=== PATIENT | female | born 1945 | race Caucasian/White ===

== ENCOUNTER 2016-09-19 13:32 | Inpatient (IN) | payer MEDICARE, MEDICAID ==
--- NOTE | 2016-09-19 13:43 | ED Physician Chart ---
Chief Complaint/HPI - Patient Information Date Seen:: 09/19/16 Time Seen:: 13:39 Chief Complaint:: falling History of Present Illness:: pt sent from [place] for eval after frequent falls...fell yest and today...fell in room 1x and outside 1x. pt denies LOC but cant say why she is falling. no NUÑEZ, no CP, no abd p, no palpitations. no focal neuro weakness/numbness. pt says this is a recent acute change. no hx fever/no illness. no cough , no urine change noted. no n/v/d fever noted by ed staff on arrival Historian:: Patient Past Medical History - Past Medical History Past Medical History: Seizures, Dementia, Other (brain ca hx/ distant brain sx) Social History: Care Facility Psychiatricy History: Dementia Medication: Reviewed Family Medical History - Family Member Mother History Unknown: Yes Physical Exam - Physical Examination General/Constitutional: Awake, Well-developed, well-nourished, Alert, No distress, GCS 15, Non-toxic appearing, Ambulatory Other Gen/Cons comments:: mod obese. alert and cogent..ok historian. moves all extr w nrml strength and coordination. sensation ok. Head: Atraumatic Eyes: Lids, conjuctiva normal, PERRL, EOMI Skin: Nl inspection, No rash, No skin lesions, No ecchymosis, Well hydrated, No lymphadenopathy ENMT: External ears, nose nl, Nasal exam nl, Lips, teeth, gums nl Neck: Nontender, Full ROM w/o pain, No JVD, No nuchal rigidity, No bruit, No mass, No stridor Respiratory: Nl effort/Exclusion, Clear to Auscultation, No Wheeze/Rhonchi/Rales Cardio Vascular: RRR, No murmur, gallop, rubs, NL S1 S2 GI: No tenderness/rebounding/guarding, No organomegaly, No hernia, Normal BS's, Nondistended, No mass/bruits, No McBurney tenderness : No CVA tenderness Extremities: No tenderness or effusion, Full ROM, normal strength in all extremities, No edema, Normal digits & nails Neuro/Psych: Alert/oriented, DTR's symmetric, Normal sensory exam, Normal motor strength, Judgement/insight normal, Mood normal, Normal gait, No focal deficits Misc: normal gait, Normal back, No paraspinal tenderness Labs/Radiology/EKG Results - Lab Results Results: Laboratory Tests 09/19/16 09/19/16 09/19/16 13:50 13:50 13:50 WBC 18.6 H RBC 4.12 Hgb 13.6 Hct 40.7 MCV 98.8 MCH 33.0 H MCHC Differential 33.4 RDW 12.5 Plt Count 190 MPV 7.1 Neutrophils (Manual) 95 H Lymphocytes 2 L Monocytes 3 Eosinophils 0 Platelet Estimate ADEQUATE Platelet Morphology NORMAL RBC Morph Micro Appear NORMAL Sodium 133 L Potassium 3.5 Chloride 100 Carbon Dioxide 29.4 Anion Gap 7.1 BUN 13 Creatinine 0.9 Est GFR ( Amer) TNP Est GFR (Non-Af Amer) TNP BUN/Creatinine Ratio 14.4 Glucose 194 H Hemoglobin A1c % Calcium 9.2 Total Bilirubin 0.6 AST 14 ALT 10 Alkaline Phosphatase 84 Troponin I 0.01 Total Protein 7.8 Albumin 4.1 Globulin 3.7 Albumin/Globulin Ratio 1.1 Phenytoin 24.8 H 09/19/16 13:50 WBC RBC Hgb Hct MCV MCH MCHC Differential RDW Plt Count MPV Neutrophils (Manual) Lymphocytes Monocytes Eosinophils Platelet Estimate Platelet Morphology RBC Morph Micro Appear Sodium Potassium Chloride Carbon Dioxide Anion Gap BUN Creatinine Est GFR ( Amer) Est GFR (Non-Af Amer) BUN/Creatinine Ratio Glucose Hemoglobin A1c % 5.2 Calcium Total Bilirubin AST ALT Alkaline Phosphatase Troponin I Total Protein Albumin Globulin Albumin/Globulin Ratio Phenytoin - Radiology Results Results: cxr nad/ perhaps slight edema and highlighting of lateral fissure. ct head- no bleed/ prior rt frontal craniotomy sx, chronic atrophy and asvd - EKG Interpretations EKG Time:: 13:45 Rhythm: nsr Herman: 79 Rate: 80 Comments:: nsr 95, wnl no st/t changes ED Septic Shock - . Is Septic Shock (SBP<90, OR Lactate>4 mmol\L) present?: No Reassessment (Disposition) - Reassessment Reassessment:: d/w Dr Guevara...will admit. for fever r/o sepsis, frequent falls recently Reassessment Condition:: Improved - Diagnosis Diagnosis:: 1 leukocytosis w elevated neutrophils and fever r/o sepsis, 2 frequent falls recently - Patient Disposition Admitted to:: Telemetry Condition at Disposition:: Improved
[2016-09-19 14:05] LABS: HEMATOCRIT 40.7 % (35.0-45.0); HEMOGLOBIN 13.6 gm/dL (11.7-16.1); MEAN CELL VOLUME 98.8 fl (81-100); MEAN CORPUSCULAR HGB CONC 33.4 pg (28.0-36.0); MEAN PLATELET VOLUME 7.1 fl; PLATELET COUNT 190 Th/cmm (150-400); RED BLOOD COUNT 4.12 Mil/cmm (3.80-5.20); RED CELL DISTRIBUTION WIDTH 12.5 % (11.5-20.0); WHITE BLOOD COUNT 18.6 Th/cmm (4.8-10.8)
[2016-09-19 14:20] LABS: ALB/GLOB RATIO 1.1 (1.0-1.8); ALKALINE PHOSPHATASE 84 U/L (34-104); ANION GAP 7.1 (7.0-16.0); BILIRUBIN,TOTAL 0.6 mg/dL (0.3-1.0); BUN - UREA NITROGEN 13 mg/dL (7-25); BUN/CREATININE RATIO 14.4; CALCIUM SERUM 9.2 mg/dL (8.6-10.3); CARBON DIOXIDE 29.4 mEq/L (21.0-31.0); CHLORIDE 100 mEq/L (98-107); CREATININE - SERUM 0.9 mg/dL (0.6-1.2); GLUCOSE 194 mg/dL (70-105); PHENYTOIN 24.8 ug/ml (10.0-20.0); POTASSIUM SERUM 3.5 mEq/L (3.5-5.1); SGOT 14 U/L (13-39); SGPT/ALT 10 U/L (7-52); SODIUM SERUM 133 mEq/L (136-145)
[2016-09-19 14:23] LABS: EOSINOPHIL 0 % (0-5); NEUTROPHILS 95 % (40-80); PLATELET ESTIMATE ADEQUATE (NORMAL); PLATELET MORPHOLOGY NORMAL (NORMAL); TOTAL CELLS COUNTED 100
--- NOTE | 2016-09-19 14:48 | Diagnostic Imaging Report ---
Head CT without intravenous contrast Indication: Frequent falls history of brain tumor Comparison: None Technique: Axial images were obtained from the vertex to the skull base without IV contrast. Coronal reconstructions were made. Total DLP: 566, CTDI31.3 FINDINGS: Images of the brain obtained without contrast demonstrate evidence of prior right frontal craniotomies. There is no evidence of an acute hemorrhage. Area of encephalomalacia is seen along the right frontal lobe and right basal ganglia are noted. There is ex vacuo dilatation of the anterior horn of the right lateral ventricle. Atrophy and diffuse supratentorial white matter disease is noted. Atherosclerotic vascular disease is noted. The ventricles and basal cisterns are patent. No mass effect or midline shift. No evidence of a skull fracture or significant focal soft tissue swelling. IMPRESSION: Postsurgical changes including evidence of right frontal craniotomies with areas of encephalomalacia throughout the right frontal lobe and right basal ganglia. These may be due to old infarcts or possibly previous surgery and mass resection. Please correlate with clinical history and old exams. If clinically indicated, short-term follow up MRI may also be obtained for further assessment. No evidence of acute hemorrhage. Atrophy. Diffuse supratentorial white matter disease which is nonspecific and may be due to chronic microvessel ischemia. Atherosclerotic vascular disease.
--- NOTE | 2016-09-19 15:13 | Diagnostic Imaging Report ---
CHEST X-RAY: AP view INDICATION: Fever COMPARISON: None FINDINGS: Chronic changes are seen with thickening of the minor fissure. Increased adjacent markings are seen along the right upper lobe. No pleural effusions. Heart size normal. Atherosclerosis is noted. Degenerative changes of the spine are noted. IMPRESSION: Chronic lung changes. Note that same infiltrate of the inferior aspect of the right upper lobe adjacent to the minor fissure cannot be excluded. Atherosclerotic vascular disease.
[2016-09-19] MEDS: Albuterol/Ipratropium Neb 3 ML AERS HHN SCH (18:55)
[2016-09-19] MEDS: Levofloxacin 500mg/100mL 500 MG/100 ML BAG IV SCH (19:55)
[2016-09-19] MEDS ORDERED: Pneumococcal Vaccine 0.5 mL Vial IM ONE (21:00)
[2016-09-20 05:50] LABS: CHOLESTEROL 174 mg/dL (<200); TRIGLYCERIDES 61 mg/dL (<150)
[2016-09-20] MEDS: Albuterol/Ipratropium Neb 3 ML AERS HHN SCH ×4 (06:40→19:03)
--- NOTE | 2016-09-20 12:59 | History & Physical ---
CHIEF COMPLAINT: Status post multiple falls, lethargy. HISTORY OF PRESENT ILLNESS: This is a 70-year-old lady who resides at [facility] who has a history of COPD, nicotine dependence, history of brain cancer, status post resection, and history of seizures on Dilantin and Keppra, who apparently has had roughly about 7 non-mechanical falls over the last couple of days. She states that she fell down in her bedroom, but did not lose consciousness, but was not able to get up on her own. She also apparently has had some falls in the outside of facility, but again they are not described as syncopal episodes as she has not lost consciousness. She does admit to feeling more weak and lethargic over the last week or so. She has a chronic cough, but denies any worsening of her cough. She also denies any fever, chills or shortness of breath. PAST MEDICAL HISTORY: As noted above. PAST SURGICAL HISTORY: As noted above. FAMILY HISTORY: Likely noncontributory to this admission. SOCIAL HISTORY: Nicotine, she is a long time smoker about a pack a day since an early age. No ETOH. No illicit drug usage. She lives at [facility] under the care of Dr. Garcia. ALLERGIES: NKDA. OUTPATIENT MEDICATIONS: Loratadine 10 mg every day, Keppra 500 mg b.i.d., Dilantin 100 mg 3 times a day, mirtazapine 30 mg at bedtime, diphenhydramine 25 at bedtime, clonazepam 2mg-2 tabs at bedtime, temazepam 15 mg at bedtime, meclizine 25 mg t.i.d. p.r.n. for dizziness and triamcinolone cream b.i.d. p.r.n. REVIEW OF SYSTEMS: GENERAL: Denies any fever, chills, and recent weight loss. CARDIOVASCULAR: No chest pain or palpitations. PULMONARY: Chronic cough with thick yellowish sputum, but the patient denies any worsening of her symptoms and mild to moderate chronic SOB, especially upon exertion. GASTROINTESTINAL: No bowel habit changes. GENITOURINARY: No bladder habit changes including no dysuria or hematuria. NEUROLOGIC: Please refer to the HPI, but again she denies any syncopal episodes. She denies any headaches or blurry vision. She does feel somewhat weak and somewhat lethargic as mentioned above. PHYSICAL EXAMINATION: VITAL SIGNS: Current temperature is 99.0, T-max was 101.2, pulse 83-92, respirations 18-20, BP 114/60, satting 93%-99% on room air. GENERAL: She is a well-developed, well-nourished elderly female, currently asleep, but arousable. She is somewhat lethargic. HEAD AND NECK: Normocephalic, atraumatic. Pupils are sluggish, but reactive to light. NECK: There is no JVD or LAD. CARDIAC: Regular rate and rhythm with distant sounds. LUNGS: Severely diminished on both ascites. There are some rhonchi noted on the right lower aspect of the lung. ABDOMEN: Soft, supple, nontender, nondistended, normoactive bowel sounds. EXTREMITIES: There is no edema in lower extremities. NEUROLOGIC: Good neuro exam was unable to be done given the patient was not able to stand at this time, but her cranial nerves 2-12 appear to be intact. LABORATORY DATA: White count 18.6 with a neutrophil count of 95, otherwise CBC within normal limits. Sodium 133, glucose 194, otherwise chemistries were okay and cholesterol 174. Triglycerides 61. TSH is 1.81. Dilantin levels 24.8. DIAGNOSTICS: CT shows postsurgical changes including no evidence of right frontal craniotomies with areas of encephalomalacia throughout the right frontal lobe and right basal ganglia. This may be due to old infarct or possible previous surgery and mass resection. Diffuse supratentorial white matter disease, which is nonspecific and may be due to chronic microvessel ischemia and there is also atherosclerotic vascular disease. Chest x-ray shows chronic lung changes that could be an infiltrate on the inferior aspect of the right upper lobe adjacent to the minor fissure, which cannot be excluded. There is also noted atherosclerotic vascular disease. IMPRESSION: 1. Status post multiple mechanical falls, etiology could be secondary to infection, sepsis, other things to consider will be oral medication given that she takes 2 anticonvulsants as well as Benadryl and Ativan. 2. Leukocytosis, likely secondary to infectious etiology, which at this time points to pneumonia. Other things to consider will be urinary infection. 3. Possible right upper lobe pneumonia. 4. History of chronic obstructive pulmonary disease. 5. Longstanding history of nicotine dependence. 6. History of atherosclerotic vascular disease. PLAN: The patient has been admitted to tele floor for further management and care. The patient has been placed on Levaquin IV q. 24 hours as well as pulmonary supportive care with DuoNeb q. 4 hours while awake and p.r.n. The patient also has been placed on oxygen and sputum C and S will be ordered. As far as falls, they appear to be nonsyncopa; I will ask for Neurology eval and will withhold Dilantin and monitor on a daily basis. The patient will be kept on her Keppra schedule and Benadryl will be discontinued and temazepam and Klonopin will be tapered. UA will be asked for. She will be kept on her other medications as scheduled. Follow up x-ray will be done as well. JOB# [id number] MITCH
[2016-09-20] MEDS ORDERED: VTE Chemical Prophylaxis Screen/Admission MC PRN (15:15)
--- NOTE | 2016-09-20 15:42 | Diagnostic Imaging Report ---
Bilateral carotid Doppler ultrasound exam HISTORY: Sonographic sector images were obtained to the carotid bifurcation regions bilaterally. Associated Doppler data was obtained. The exam of the right side demonstrates generalized intimal thickening throughout the bifurcation region. Mild focal plaque is seen in the common carotid artery and at the origin of the right internal and external carotid arteries. Elevated velocity seen in the external carotid artery region. The IC/CC flow ratios normal (1.76). Antegrade vertebral artery flow. The exam of the left side demonstrates generalized intimal thickening throughout the bifurcation region. Mild focal plaque noted in the distal common carotid artery and at the origin of the left internal carotid artery. Antegrade vertebral artery flow. Elevated velocities seen in the region of the left external carotid artery. Minimally elevated velocities noted in the mid and distal portions of the internal carotid artery. The ICC/CCA flow ratios are normal (0.92). IMPRESSION: 1. Mild bilateral athetotic changes that do not appear to be hemodynamically significant.
[2016-09-20] MEDS: Levofloxacin 500mg/100mL 500 MG/100 ML BAG IV SCH (17:00)
--- NOTE | 2016-09-20 18:02 | History & Physical ---
HISTORY OF PRESENT ILLNESS: The patient is a 70-year-old. The patient in the custodial home. The patient had multiple falls. These tend to be ____ mechanical. There are no seizures associated with this. She is just very unsteady and weak. She says she gets along with a walker, but even that is difficult. PAST MEDICAL HISTORY: The patient has a history of brain tumor surgery, seizures, somewhat forgetful. MEDICATIONS: Dilantin, Keppra, Benadryl. Dilantin level high when she came in. Also takes clonazepam and temazepam. Meclizine. SOCIAL HISTORY: Does not smoke or drink. REVIEW OF SYSTEMS: Twelve point negative except for above. PHYSICAL EXAMINATION: VITAL SIGNS: Temperature 98.4. The patient was febrile on admission, blood pressure 120/60, pulse is around 84. NECK: Supple, no bruits. HEART: Sounds S1, S2. LUNGS: Clear. ABDOMEN: Soft. NEUROLOGIC: The patient is awake, alert. She gives me her name. She will answer questions. Speech is slightly slow, but coherent. No marked facial weakness. CRANIAL: Pupils react to light. No nystagmus. MOTOR: She will lift both arms up some weakness on the left side. The patient's legs, she will lift them up, again some weakness on the left side. REFLEXES: Upper extremity -1 absent in the knees and ankles. Sensation reduced in the feet. INVESTIGATIONS: CT scan of the head shows the right previous craniotomy with encephalomalacia, no acute process. Involves the right frontal basal ganglia. LABORATORY DATA: Dilantin level high 24.8. Dilantin held. We will restart again. IMPRESSION: 1.Ataxia. 2.Falls. 3.The patient with previous brain surgery, craniotomy with significant encephalomalacia on the right side, basal ganglia on frontal. 4.Sepsis. 5.Leukocytosis. 6.Seizures. 7.Dilantin toxicity. 8.Multiple medications including sedative, meclizine, Benadryl, which I think should some of them be stopped. Management at this time, MRI cervical spine. The patient has significant neuropathy, which could be contributing to the ataxia. She has the right sided previous surgery, which could be contributed to that in addition to medications. She is going to need physical therapy assessment and management. The patient is at high risk of fall and injury. JOB# [id number]
--- NOTE | 2016-09-20 21:40 | Cardiology ---
The patient is a patient of Dr. Guevara. M-MODE ECHOCARDIOGRAM: Mitral valve, anterior leaflet of the mitral valve shows normal excursion, EF velocity. Posterior leaflet of mitral valve shows normal excursion. Left ventricular posterior wall shows increased thickness, normal excursion. Interventricular septum shows increased thickness, normal excursion, hypertrophy of the left ventricle, ejection fraction 55%. Left atrium normal. Aortic root shows normal dimension, normal excursion of aortic leaflets. CONCLUSION: Hypertrophy of the left ventricle, ejection fraction 55%. 2D ECHO: Long axis view showed normal sized left ventricle with hypertrophy of the left ventricle. Left atrium normal. Aortic root shows normal dimension, normal excursion of aortic leaflets. Short axis view of mitral valve normal. Short axis view aortic valve normal. Apical four chamber view showed normal sized left ventricle with hypertrophy of the left ventricle. Left atrium normal. Right ventricular cavity, right atrium normal. No pericardial effusion. CONCLUSION: Hypertrophy of the left ventricle, ejection fraction 55%. DOPPLER STUDY: Doppler study shows mild aortic regurgitation, moderate tricuspid regurgitation, right ventricular systolic pressure 52 mmHg with moderate pulmonary hypertension. CONCLUSION: Hypertrophy of the left ventricle, ejection fraction 55%. Moderate pulmonary hypertension, moderate tricuspid regurgitation and mild aortic regurgitation. JOB# [id number]
--- NOTE | 2016-09-21 00:34 | Admit Criteria Form ---
Admit Criteria Forms - Admit Criteria Diagnosis: SEPSIS and OTHER FEBRILE ILLNESS, W/O FOCAL INFECTION Clinical Indications for Admission to Inpatient Care ( Place 'X' for any and all applicable criteria): Admission is indicated for ANY ONE of the following (1)(2)(3)(4): [ ] I. Bacteremia [ ]II. Suspected or identified specific infection requiring hospitalization (eg, meningitis, endocarditis) [ ]III. Hemodynamic instability [ ]IV. Altered mental status [ ]V. Failure or unavailability of outpatient antimicrobial treatment [ ]. Hypoxemia [ ]VII. Seizures [ ]VIII. High-risk febrile neutropenia [ ]IX. Need for parenteral antibiotic in patient who is likely to abuse vascular access device (eg, injection drug user) [A](7) [ ]X. Temperature greater than 104.9 degrees F (40.5 degrees C) (oral) [X ]XI. Inpatient admission required rather than observation care because of ANY ONE of the following: [ ]1) Specific infection identified that is too severe for outpatient treatment or observation care trial [ ]2) Metabolic disorder (eg, hypoglycemia, hyperglycemia, metabolic acidosis) that is severe or persistent [ ]3) Temperature greater than 103.1 degrees F (39.5 degrees C) ( oral) that is not responsive to observation care treatment [ ]4) IV fluid to replace significant ongoing (eg, for over 24 hours) losses (> 3 L/m2 per day) [ ]5) Supplemental oxygen or respiratory treatments for over 24 hours that is performable only in acute inpatient setting [ ]6) Parenteral nutrition regimen need that must be implemented on inpatient basis [ ]7) Strict or protective (eg, laminar flow) isolation [ X]8) Other condition, treatment or monitoring requiring inpatient admission Extended stay beyond goal length of stay may be needed for(1)(3) [ ]a) Sepsis or septic shock(22) [ ]b) Positive blood cultures [ ]c) Insufficient oral intake [ ]d) High-risk febrile neutropenia(29)(30) [ ]e) Continued fever and clinical instability [ ]f) Clinically active comorbid illness (e.g,heart failure, renal failure , diabetes) The original [employer] content created by [email or web address] has been revised. The portions of the content which have been revised are identified through the use of italic text or in bold, and [employer] has neither reviewed nor approved the modified material. All other unmodified content is copyright [employer] [facility]. Please see references footnoted in the original [facility] edition 2016 Admit Criteria Met?: Yes
[2016-09-21 07:16] LABS: HEMOGLOBIN 11.8 gm/dL (11.7-16.1)
[2016-09-21 07:30] LABS: % BASOPHILS 0.2 % (0.0-2.0); % EOSINOPHILS 0.8 % (0.0-5.0); % LYMPHOCYTES 13.6 % (20.0-50.0); % MONOCYTES 6.2 % (2.0-10.0); % NEUTROPHILS 79.2 % (40.0-80.0); MEAN CELL VOLUME 98.5 fl (81-100); MEAN CORPUSCULAR HEMOGLOBIN 32.6 pg (27.0-31.0); MEAN CORPUSCULAR HGB CONC 33.1 pg (28.0-36.0); MEAN PLATELET VOLUME 7.7 fl; NEUTROPHILE ABSOLUTE 6.6 Th/cmm (1.8-8.0); PLATELET COUNT 195 Th/cmm (150-400); RED BLOOD COUNT 3.62 Mil/cmm (3.80-5.20); RED CELL DISTRIBUTION WIDTH 12.2 % (11.5-20.0)
[2016-09-21 07:37] LABS: HEMATOCRIT 35.6 % (35.0-45.0); WHITE BLOOD COUNT 8.3 Th/cmm (4.8-10.8)
[2016-09-21] MEDS: Albuterol/Ipratropium Neb 3 ML AERS HHN SCH ×4 (07:41→19:21)
[2016-09-21 07:42] LABS: ANION GAP 9.2 (7.0-16.0); BUN - UREA NITROGEN 9 mg/dL (7-25); CALCIUM SERUM 9.1 mg/dL (8.6-10.3); CARBON DIOXIDE 29.4 mEq/L (21.0-31.0); CHLORIDE 101 mEq/L (98-107); CREATININE - SERUM 0.5 mg/dL (0.6-1.2); GLUCOSE 121 mg/dL (70-105); MAGNESIUM 2.3 mg/dL (1.9-2.7); POTASSIUM SERUM 3.6 mEq/L (3.5-5.1); SODIUM SERUM 136 mEq/L (136-145)
[2016-09-21] MEDS ORDERED: Promethazine DM 6.25/15mg-5mL 5 ML SYR PO PRN (08:14)
[2016-09-21 10:44] LABS: URINE COLOR YELLOW
[2016-09-21 10:45] LABS: URINE BILIRUBIN NEGATIVE (NEGATIVE); URINE BLOOD MODERATE (NEGATIVE); URINE GLUCOSE (UA) NEGATIVE (NEGATIVE); URINE KETONE NEGATIVE (NEGATIVE); URINE PROTEIN 100 mg/dL (NEGATIVE); URINE UROBILINOGEN 0.2 E.U./dL (0.2 - 1.0)
[2016-09-21 10:46] LABS: URINE BACTERIA MODERATE /hpf (NONE SEEN); URINE EPITHELIAL CELLS FEW /lpf (FEW); URINE RBC 0-2 /hpf (0-5)
--- NOTE | 2016-09-21 16:27 | Diagnostic Imaging Report ---
CT cervical spine without IV contrast HISTORY: History of brain tumor, rule out mass COMPARISON: None Technique: Axial images were obtained from the skull base to the upper thoracic spine without IV contrast. Multiplanar reconstructions were made. Total DLP: 384, CTDI18.3 FINDINGS: Images of the cervical spine obtained without contrast demonstrate no evidence of acute fracture or subluxation. Mild to moderate generalized degenerative changes are seen including mild disc space loss of height at C5/C6 with 3 mm posterior disc osteophytic spur at this level. Mild spinal canal narrowing is seen at this level. There is also 3 mm extradural density at C6/C7 causing mild spinal canal narrowing. Multilevel mild to moderate facet degenerative changes are seen greatest at C2/C3 on the left side with mild left neural foraminal narrowing at this level. Unfused posterior arch of C1 is noted. Patchy osteopenia is seen with mottled appearance of the bones. Evaluation for mass lesions limited as IV contrast was not administered however no gross mass lesions identified. Extensive emphysematous changes of the lung apices are noted. Atherosclerosis is noted. IMPRESSION: Limited exam due to lack of IV contrast. 3 mm extradural density at the C6/C7 posterior vertebral body level likely a disc osteophyte complex causing mild spinal canal narrowing. There is also additional 3 mm posterior disc osteophyte complex at C5/C6 causing mild spinal canal narrowing. Note assessment for a mass lesion is limited as IV contrast was not administered. If indicated, follow-up MRI cervical spine without and with IV contrast may also be obtained for further assessment. Mottled appearance of the bones which is likely related to osteopenia. Correlation should be made with clinical history and findings if there is concern for other less likely etiologies such as multiple myeloma. Emphysematous changes of the lung apices. Atherosclerotic vascular disease.
[2016-09-21] MEDS: Levofloxacin 500mg/100mL 500 MG/100 ML BAG IV SCH (17:08)
[2016-09-21] MEDS: Petrolatum (White) Oint 0.6 Oz Tube TP SCH (21:45)
[2016-09-22 05:07] LABS: % BASOPHILS 0.8 % (0.0-2.0); % EOSINOPHILS 0.2 % (0.0-5.0); % LYMPHOCYTES 15.9 % (20.0-50.0); % MONOCYTES 4.6 % (2.0-10.0); % NEUTROPHILS 78.5 % (40.0-80.0); HEMATOCRIT 38.3 % (35.0-45.0); HEMOGLOBIN 12.9 gm/dL (11.7-16.1); MEAN CELL VOLUME 98.4 fl (81-100); MEAN CORPUSCULAR HEMOGLOBIN 33.2 pg (27.0-31.0); MEAN CORPUSCULAR HGB CONC 33.7 pg (28.0-36.0); MEAN PLATELET VOLUME 6.9 fl; NEUTROPHILE ABSOLUTE 6.4 Th/cmm (1.8-8.0); RED BLOOD COUNT 3.89 Mil/cmm (3.80-5.20); RED CELL DISTRIBUTION WIDTH 12.1 % (11.5-20.0); WHITE BLOOD COUNT 8.2 Th/cmm (4.8-10.8)
[2016-09-22 05:16] LABS: PLATELET COUNT 250 Th/cmm (150-400)
[2016-09-22 05:23] LABS: ANION GAP 8.5 (7.0-16.0); BUN - UREA NITROGEN 14 mg/dL (7-25); BUN/CREATININE RATIO 46.7; CALCIUM SERUM 9.4 mg/dL (8.6-10.3); CARBON DIOXIDE 28.6 mEq/L (21.0-31.0); CHLORIDE 102 mEq/L (98-107); CREATININE - SERUM 0.3 mg/dL (0.6-1.2); GLUCOSE 110 mg/dL (70-105); POTASSIUM SERUM 4.1 mEq/L (3.5-5.1); SODIUM SERUM 135 mEq/L (136-145)
[2016-09-22] MEDS: Albuterol/Ipratropium Neb 3 ML AERS HHN SCH ×4 (07:49→19:23)
[2016-09-22] MEDS: Petrolatum (White) Oint 0.6 Oz Tube TP SCH ×3 (09:24→21:04)
--- NOTE | 2016-09-22 10:26 | Diagnostic Imaging Report ---
Portable chest x-ray HISTORY: Shortness of breath Compared with prior exam 09/19/2016, the lungs are hyperexpanded consistent with changes of COPD. Generalized accentuation of the interstitial lung markings. No definite acute focal processes are seen. The heart size is normal. IMPRESSION: 1. Pulmonary hyperexpansion along with findings suggesting COPD 2. No definite acute focal processes
[2016-09-22 14:14] LABS: FOLIC ACID 9.8 ng/mL (>3.0)
[2016-09-22] MEDS: Levofloxacin 500mg/100mL 500 MG/100 ML BAG IV SCH (17:19)
[2016-09-23] MEDS: Albuterol/Ipratropium Neb 3 ML AERS HHN SCH ×4 (07:36→19:42)
[2016-09-23] MEDS: Petrolatum (White) Oint 0.6 Oz Tube TP SCH ×3 (09:21→21:05)
[2016-09-23 11:09] LABS: URINE BILIRUBIN NEGATIVE (NEGATIVE); URINE COLOR YELLOW; URINE GLUCOSE (UA) NEGATIVE (NEGATIVE); URINE KETONE NEGATIVE (NEGATIVE)
[2016-09-23 11:10] LABS: URINE BACTERIA NONE SEEN /hpf (NONE SEEN); URINE BLOOD TRACE (NEGATIVE); URINE EPITHELIAL CELLS FEW /lpf (FEW); URINE PH 6.5; URINE PROTEIN 100 mg/dL (NEGATIVE); URINE RBC 0-2 /hpf (0-5); URINE UROBILINOGEN 0.2 E.U./dL (0.2 - 1.0); URINE WBC 0-2 /hpf (0-5)
[2016-09-23 12:59] LABS: % BASOPHILS 0.1 % (0.0-2.0); % EOSINOPHILS 0.4 % (0.0-5.0); % LYMPHOCYTES 11.6 % (20.0-50.0); % MONOCYTES 2.1 % (2.0-10.0); % NEUTROPHILS 85.8 % (40.0-80.0); HEMATOCRIT 40.5 % (35.0-45.0); HEMOGLOBIN 13.7 gm/dL (11.7-16.1); MEAN CORPUSCULAR HEMOGLOBIN 33.1 pg (27.0-31.0); MEAN CORPUSCULAR HGB CONC 33.8 pg (28.0-36.0); MEAN PLATELET VOLUME 6.7 fl; NEUTROPHILE ABSOLUTE 6.6 Th/cmm (1.8-8.0); PLATELET COUNT 256 Th/cmm (150-400); RED BLOOD COUNT 4.13 Mil/cmm (3.80-5.20); RED CELL DISTRIBUTION WIDTH 12.2 % (11.5-20.0); WHITE BLOOD COUNT 7.7 Th/cmm (4.8-10.8)
[2016-09-23 13:20] LABS: ANION GAP 9.1 (7.0-16.0); BUN - UREA NITROGEN 19 mg/dL (7-25); BUN/CREATININE RATIO 27.1; CALCIUM SERUM 9.2 mg/dL (8.6-10.3); CARBON DIOXIDE 29.7 mEq/L (21.0-31.0); CHLORIDE 100 mEq/L (98-107); CREATININE - SERUM 0.7 mg/dL (0.6-1.2); GLUCOSE 121 mg/dL (70-105); POTASSIUM SERUM 3.8 mEq/L (3.5-5.1); SODIUM SERUM 135 mEq/L (136-145)
[2016-09-23] MEDS: Levofloxacin 500mg/100mL 500 MG/100 ML BAG IV SCH (18:44)
[2016-09-24 05:03] LABS: % BASOPHILS 1.4 % (0.0-2.0); % EOSINOPHILS 0.3 % (0.0-5.0); % LYMPHOCYTES 20.6 % (20.0-50.0); % MONOCYTES 4.7 % (2.0-10.0); HEMATOCRIT 38.6 % (35.0-45.0); MEAN CELL VOLUME 97.8 fl (81-100); MEAN CORPUSCULAR HEMOGLOBIN 32.8 pg (27.0-31.0); MEAN CORPUSCULAR HGB CONC 33.6 pg (28.0-36.0); MEAN PLATELET VOLUME 7.1 fl; NEUTROPHILE ABSOLUTE 4.8 Th/cmm (1.8-8.0); PLATELET COUNT 275 Th/cmm (150-400); RED BLOOD COUNT 3.94 Mil/cmm (3.80-5.20); RED CELL DISTRIBUTION WIDTH 12.4 % (11.5-20.0); WHITE BLOOD COUNT 6.5 Th/cmm (4.8-10.8)
[2016-09-24 05:19] LABS: ANION GAP 7.9 (7.0-16.0); BUN - UREA NITROGEN 18 mg/dL (7-25); BUN/CREATININE RATIO 25.7; CALCIUM SERUM 9.1 mg/dL (8.6-10.3); CARBON DIOXIDE 29.3 mEq/L (21.0-31.0); CHLORIDE 102 mEq/L (98-107); CREATININE - SERUM 0.7 mg/dL (0.6-1.2); GLUCOSE 103 mg/dL (70-105); MAGNESIUM 2.3 mg/dL (1.9-2.7); POTASSIUM SERUM 4.2 mEq/L (3.5-5.1); SODIUM SERUM 135 mEq/L (136-145)
[2016-09-24] MEDS: Albuterol/Ipratropium Neb 3 ML AERS HHN SCH ×4 (07:20→19:00)
[2016-09-24] MEDS: Petrolatum (White) Oint 0.6 Oz Tube TP SCH ×3 (08:55→21:06)
--- NOTE | 2016-09-24 16:09 | Consultation ---
The patient of Dr. Guevara. Thank you very much Dr. Guevara for this consultation. HISTORY OF PRESENT ILLNESS: This is a 70-year-old female with history of COPD, presents with cough, congestion, shortness of breath, and admitted for further treatment and management. The patient is feeling better after she has had the breathing treatment. She has some amount phlegm yesterday, but has improved today. She is a smoker and continues to smoke for 50 years. REVIEW OF SYSTEMS: GENERAL: No weakness, fatigue. CARDIOVASCULAR: No chest pain. RESPIRATORY: No shortness of breath, cough, or congestion. GASTROINTESTINAL: No nausea or vomiting. PHYSICAL EXAMINATION: GENERAL: Awake, alert, not in acute distress. VITAL SIGNS: Temperature is 99.5, pulse 90, respirations 20, blood pressure is 137/65, and saturation 92%-93% on 2 liters oxygen. HEENT: Atraumatic and normocephalic. Pupils are equal and react to light and accommodation. Ears, nose, and throat and normal. NECK: Supple. No JVD. CHEST: There are scattered rhonchi and wheezing bilaterally. HEART: Regular rate and rhythm. ABDOMEN: Soft and nontender. EXTREMITIES: No edema. CHEST X-RAY: No acute infiltrate. LABORATORY DATA: WBC is 8.3, hemoglobin 9.8, hematocrit 35.6, and platelets 195,000. Sodium is 136, potassium 3.6, BUN 9, and creatinine 0.5. Influenza A and B negative. IMPRESSION: This is a 70-year-old female with: 1. Chronic obstructive pulmonary disease exacerbation. 2. Acute bronchitis. 3. Acute Hypoxemia. PLAN: 1. IV antibiotics. 2. Nebulizer. 3. IV Solu-Medrol. 4. Follow up chest x-ray and I will follow the patient with you. 5. The patient was advised strongly against smoking. Than you very much for this consultation. JOB# [id number]
[2016-09-24] MEDS: Levofloxacin 500mg/100mL 500 MG/100 ML BAG IV SCH (17:13)
[2016-09-25] MEDS: Petrolatum (White) Oint 0.6 Oz Tube TP SCH ×2 (01:42→08:41)
[2016-09-25] MEDS: Albuterol/Ipratropium Neb 3 ML AERS HHN SCH ×4 (06:31→20:07)
[2016-09-25 07:25] LABS: % BASOPHILS 0.6 % (0.0-2.0); % EOSINOPHILS 0.4 % (0.0-5.0); % LYMPHOCYTES 29.4 % (20.0-50.0); % MONOCYTES 5.7 % (2.0-10.0); % NEUTROPHILS 63.9 % (40.0-80.0); HEMATOCRIT 39.5 % (35.0-45.0); HEMOGLOBIN 13.2 gm/dL (11.7-16.1); MEAN CELL VOLUME 99.1 fl (81-100); MEAN CORPUSCULAR HEMOGLOBIN 33.1 pg (27.0-31.0); MEAN CORPUSCULAR HGB CONC 33.4 pg (28.0-36.0); MEAN PLATELET VOLUME 7.3 fl; NEUTROPHILE ABSOLUTE 5.3 Th/cmm (1.8-8.0); PLATELET COUNT 294 Th/cmm (150-400); RED BLOOD COUNT 3.98 Mil/cmm (3.80-5.20); RED CELL DISTRIBUTION WIDTH 12.4 % (11.5-20.0)
[2016-09-25 07:41] LABS: WHITE BLOOD COUNT 8.2 Th/cmm (4.8-10.8)
[2016-09-25 09:14] LABS: ANION GAP 13.9 (7.0-16.0); BUN - UREA NITROGEN 17 mg/dL (7-25); BUN/CREATININE RATIO 28.3; CARBON DIOXIDE 26.2 mEq/L (21.0-31.0); CHLORIDE 100 mEq/L (98-107); CREATININE - SERUM 0.6 mg/dL (0.6-1.2); GLUCOSE 110 mg/dL (70-105); POTASSIUM SERUM 4.1 mEq/L (3.5-5.1); SODIUM SERUM 136 mEq/L (136-145)
[2016-09-25] MEDS: Levofloxacin 500mg/100mL 500 MG/100 ML BAG IV SCH (17:31)
--- NOTE | 2016-09-25 20:03 | Discharge Summary ---
ADMITTING DIAGNOSES: Generalized weakness, frequent falling, chronic obstructive pulmonary disease exacerbation, leukocytosis, and possible right upper lobe pneumonia, mild hyponatremia, Dilantin toxicity. SECONDARY DIAGNOSES: Includes history of chronic obstructive pulmonary disease, longstanding history of nicotine dependence, history of brain tumor/mass status post-resection, history of seizure, and atherosclerotic vascular disease. DISCHARGE DIAGNOSES: 1. Chronic obstructive pulmonary disease with exacerbation. 2. Leukocytosis, resolved. 3. Generalized weakness. 4. Recent frequent falling. 5. Dilantin toxicity, resolved. 6. 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 CONSULTANTS: Dr. Herbert, Pulmonary. Dr. Soares, Neurology. MAJOR PROCEDURES: She underwent a head CT on admission on 09/19/2016 showing post-surgical changes including evidence of right frontal craniotomies with areas of encephalomalacia through the right frontal lobe and right basal ganglia. These may be due to old infarct or possible previous surgery in mass resection. There was also diffuse supratentorial white matter disease and atherosclerotic vascular disease. There was a 2D echo done on 09/20/2016 showing hypertrophy of the left ventricle with an EF of 55%. There was moderate pulmonary hypertension, moderate tricuspid regurgitation, and mild aortic regurgitation. Carotid ultrasound done 09/20/2016 showed mild bilateral atherosclerotic changes but that did appear to be hemodynamically significant. There was a cervical spine CT done on 09/21/2016, showing mild disk space loss at the height of C5-C6 with 3 mm posterior disk osteophytic spur at this level. There is also mild spinal canal narrowing seen at this level. There is a 3 mm extradural density at C6-C7 causing mild spinal canal narrowing. There is a multiple level [id number] facet degenerative changes seen greatest at C2-C3 on the left side with mild left neural foraminal narrowing at this level. There is also an unfused posterior arch at C1. There is patchy osteopenia with mottled appearance of the bones. BRIEF HOSPITAL COURSE: A 70-year-old lady, resident of [facility] who was transferred to the ER after sustaining multiple mechanical falls, which appeared to be non-syncopal. The patient states that she has had up to 7 falls over the last 2 days. She stated that she had certainly 7 falls 2 days prior to admission, which she attributes to her feeling weak, tired, and somewhat dizzy. At that time, she denies any chest pain and shortness of breath from her baseline which is somewhat chronic given her COPD, and she also denied any acute cough which again the patient has chronic cough given her COPD. PERTINENT FINDINGS ON ADMISSION: Included a white count of 18.6 with neutrophil count of 95%, sodium of 133, and Dilantin level of 24.8. She underwent CT of the head while in the ER and was admitted to telemetry for further management and care. The patient was placed on IV antibiotics, pulmonary supportive care, steroids, and her Dilantin was withheld. Her white count improved by hospital day #2 with going down from 18.6 to 8.3 and her Dilantin level normalized by 09/20/2016 with a level of 19.6. The patient was evaluated by Dr. Soares. The patient was seen by Dr. Soares who agreed with the plan of withholding her Dilantin and he advised on a CT of neck which she was able to undergo without any difficulties. Given the results of her CT findings and also noting that she had clips from her previous craniotomies, and MRI was not able to be done. However, she underwent the above-mentioned diagnoses including a 2D echo and carotid ultrasound without any difficulties. The patient was restarted on her Dilantin and has been getting Levaquin IV as well as pulmonary supportive care, IV Solu-Medrol, which has been tapered and Keppra, which is one of her original home medications. The patient also was seen by Physical Therapy and has been able to participate, although with a limited amount. The patient has improved clinically, although she still looks somewhat weak and tired and her O2 sats are somewhere around 90% to 92% on room air, improving to a level of 94%-95% on 2 liters. At this time, the patient and her brother are agreeable for the patient to be transferred to senior care facility for skilled needs i.e., PT and Pulmonary Rehabilitation. DISCHARGE MEDICATIONS: DuoNeb q.4 hours while awake and p.r.n. Benadryl 25 mg at bedtime, heparin 5000 units q.12 hours, Keppra 500 mg b.i.d., Levaquin 500 mg IV q.24h. x 10 days, Claritin 10 mg every day, meclizine 25 mg t.i.d. p.r.n. for dizziness, Remeron 30 mg at bedtime, Bactroban apply twice a day for 7 days, Dilantin 100 mg b.i.d., promethazine or actually Phenergan DM 10 mL q.4 hours p.r.n. for cough, Restoril 15 at bedtime, Klonopin 2 mg at bedtime, Solu-Medrol 20 mg IV q.12 hours. CONDITION ON DISCHARGE: Stable. DISPOSITION: The patient will be discharged to senior care facility for further management and care. JOB# [id number]
[2016-09-26] MEDS: Petrolatum (White) Oint 0.6 Oz Tube TP SCH ×4 (03:57→21:20)
[2016-09-26 05:18] LABS: % BASOPHILS 0.8 % (0.0-2.0); % EOSINOPHILS 1.9 % (0.0-5.0); % LYMPHOCYTES 26.6 % (20.0-50.0); % MONOCYTES 7.2 % (2.0-10.0); % NEUTROPHILS 63.5 % (40.0-80.0); HEMATOCRIT 37.2 % (35.0-45.0); HEMOGLOBIN 12.6 gm/dL (11.7-16.1); MEAN CELL VOLUME 98.9 fl (81-100); MEAN CORPUSCULAR HEMOGLOBIN 33.5 pg (27.0-31.0); MEAN CORPUSCULAR HGB CONC 33.9 pg (28.0-36.0); MEAN PLATELET VOLUME 6.8 fl; NEUTROPHILE ABSOLUTE 4.1 Th/cmm (1.8-8.0); PLATELET COUNT 272 Th/cmm (150-400); RED BLOOD COUNT 3.76 Mil/cmm (3.80-5.20); RED CELL DISTRIBUTION WIDTH 12.2 % (11.5-20.0)
[2016-09-26 05:31] LABS: WHITE BLOOD COUNT 6.5 Th/cmm (4.8-10.8)
[2016-09-26 05:40] LABS: ANION GAP 7.6 (7.0-16.0); BUN - UREA NITROGEN 19 mg/dL (7-25); BUN/CREATININE RATIO 31.7; CALCIUM SERUM 8.5 mg/dL (8.6-10.3); CARBON DIOXIDE 29.7 mEq/L (21.0-31.0); CHLORIDE 101 mEq/L (98-107); CREATININE - SERUM 0.6 mg/dL (0.6-1.2); GLUCOSE 95 mg/dL (70-105); POTASSIUM SERUM 4.3 mEq/L (3.5-5.1); SODIUM SERUM 134 mEq/L (136-145)
[2016-09-26] MEDS: Albuterol/Ipratropium Neb 3 ML AERS HHN SCH ×4 (07:55→19:04)
[2016-09-26] MEDS ORDERED: Phenytoin 1,000 MG in Sodium Chloride 0.9% 100 ML IV ONE (11:00)
--- NOTE | 2016-09-26 11:06 | Diagnostic Imaging Report ---
Head CT without intravenous contrast Indication: Seizure Comparison: Head CT on 09/19/2016 Technique: Axial images were obtained from the vertex to the skull base without IV contrast. Coronal reconstructions were made. Total DLP: 663, CTDI32.6 FINDINGS: Images of the brain obtained without contrast demonstrate no evidence of an acute hemorrhage. Again seen are postsurgical changes with previous right frontal and temporal craniotomies. There is encephalomalacia are again noted throughout the right frontal lobe. 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 Moderate white matter disease is noted. Atrophy is noted. The ventricles and basal cisterns are patent. No mass effect or midline shift. No evidence of acute skull fracture or focal soft tissue swelling. Mucous retention cyst versus polyp of the left maxillary sinus is noted. IMPRESSION: No evidence of acute intracranial hemorrhage. Redemonstration of postsurgical changes of the right frontal and temporal lobe regions with areas of encephalomalacia again noted throughout the right frontal lobe. 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 Atherosclerotic vascular disease.
[2016-09-26] MEDS: D5-0.9%NS 1,000 ML IV SCH (14:00)
[2016-09-26] MEDS: Levetiracetam 500mg/100mL 500 MG/100 ML BAG IV SCH (16:41)
[2016-09-26] MEDS: Levofloxacin 500mg/100mL 500 MG/100 ML BAG IV SCH (18:59)
[2016-09-27] MEDS: D5-0.9%NS 1,000 ML IV SCH (02:53)
[2016-09-27] MEDS: Albuterol/Ipratropium Neb 3 ML AERS HHN SCH ×4 (08:21→19:14)
[2016-09-27 08:36] LABS: ALKALINE PHOSPHATASE 64 U/L (34-104); ANION GAP 2.4 (7.0-16.0); BILIRUBIN,TOTAL 0.3 mg/dL (0.3-1.0); BUN - UREA NITROGEN 10 mg/dL (7-25); CALCIUM SERUM 8.3 mg/dL (8.6-10.3); CARBON DIOXIDE 34.4 mEq/L (21.0-31.0); CHLORIDE 100 mEq/L (98-107); CREATININE - SERUM 0.5 mg/dL (0.6-1.2); GLUCOSE 113 mg/dL (70-105); POTASSIUM SERUM 3.8 mEq/L (3.5-5.1); SGOT 14 U/L (13-39); SGPT/ALT 13 U/L (7-52); SODIUM SERUM 133 mEq/L (136-145)
[2016-09-27 08:40] LABS: % BASOPHILS 0.3 % (0.0-2.0); % EOSINOPHILS 1.3 % (0.0-5.0); % LYMPHOCYTES 17.2 % (20.0-50.0); % MONOCYTES 5.9 % (2.0-10.0); % NEUTROPHILS 75.3 % (40.0-80.0); HEMATOCRIT 37.3 % (35.0-45.0); HEMOGLOBIN 12.5 gm/dL (11.7-16.1); MEAN CELL VOLUME 98.1 fl (81-100); MEAN CORPUSCULAR HEMOGLOBIN 32.9 pg (27.0-31.0); MEAN CORPUSCULAR HGB CONC 33.6 pg (28.0-36.0); MEAN PLATELET VOLUME 6.6 fl; NEUTROPHILE ABSOLUTE 6.2 Th/cmm (1.8-8.0); PLATELET COUNT 278 Th/cmm (150-400); RED CELL DISTRIBUTION WIDTH 12.3 % (11.5-20.0)
[2016-09-27 08:41] LABS: WHITE BLOOD COUNT 8.2 Th/cmm (4.8-10.8)
[2016-09-27] MEDS: Petrolatum (White) Oint 0.6 Oz Tube TP SCH ×3 (08:55→22:00)
--- NOTE | 2016-09-27 09:16 | Diagnostic Imaging Report ---
CHEST X-RAY: AP view INDICATION: COPD COMPARISON: Chest x-ray 09/22/2016 FINDINGS: COPD lung changes are noted with no focal consolidation or pleural effusions. Right midlung scarring is noted. Heart size is normal. Atherosclerosis is noted. IMPRESSION: COPD lung changes with no focal consolidation identified.
[2016-09-27] MEDS ORDERED: Probiotic Screen MC PRN (09:20)
[2016-09-27] MEDS: Levetiracetam 500mg/100mL 500 MG/100 ML BAG IV SCH ×2 (09:30→16:35)
[2016-09-27 11:40] VITALS: BP 134/72
[2016-09-27 15:20] LABS: HCO3 34.6 mmol/L (20.0-26.0); pH 7.44 (7.35-7.45)
[2016-09-27 15:21] LABS: ABG SOURCE Arterial; ALLEN TEST YES; BE(B) 8.9 mmol/L (-3.0-3.0); FIO2 64
[2016-09-27] MEDS: Levofloxacin 500mg/100mL 500 MG/100 ML BAG IV SCH (18:00)
[2016-09-28] MEDS: D5-0.9%NS 1,000 ML IV SCH ×2 (01:05→12:25)
[2016-09-28] MEDS: Albuterol/Ipratropium Neb 3 ML AERS HHN SCH ×4 (06:47→19:19)
[2016-09-28 07:33] LABS: % BASOPHILS 0.7 % (0.0-2.0); % EOSINOPHILS 1.3 % (0.0-5.0); % LYMPHOCYTES 22.5 % (20.0-50.0); % NEUTROPHILS 69.5 % (40.0-80.0); HEMATOCRIT 38.9 % (35.0-45.0); MEAN CELL VOLUME 98.7 fl (81-100); MEAN CORPUSCULAR HEMOGLOBIN 33.1 pg (27.0-31.0); MEAN CORPUSCULAR HGB CONC 33.5 pg (28.0-36.0); MEAN PLATELET VOLUME 7.1 fl; NEUTROPHILE ABSOLUTE 5.7 Th/cmm (1.8-8.0); PLATELET COUNT 273 Th/cmm (150-400); RED BLOOD COUNT 3.94 Mil/cmm (3.80-5.20); RED CELL DISTRIBUTION WIDTH 11.8 % (11.5-20.0); WHITE BLOOD COUNT 8.3 Th/cmm (4.8-10.8)
[2016-09-28] MEDS: Levetiracetam 500mg/100mL 500 MG/100 ML BAG IV SCH (08:41)
[2016-09-28] MEDS ORDERED: Levetiracetam 500mg/100mL 500 MG/100 ML BAG IV SCH (10:00)
[2016-09-28] MEDS: Lactobacillus Rhamnosus 10 Billion CFU Capsule PO SCH (11:25)
[2016-09-28] MEDS: Petrolatum (White) Oint 0.6 Oz Tube TP SCH ×3 (12:19→20:33)
[2016-09-28] MEDS: Valproate Sodium 1,000 MG in Sodium Chloride 0.9% 100 ML IV SCH (14:30)
[2016-09-28 14:55] LABS: URINE BILIRUBIN NEGATIVE (NEGATIVE); URINE BLOOD SMALL (NEGATIVE); URINE COLOR YELLOW; URINE GLUCOSE (UA) NEGATIVE (NEGATIVE); URINE KETONE NEGATIVE (NEGATIVE); URINE PROTEIN NEGATIVE (NEGATIVE); URINE UROBILINOGEN 0.2 E.U./dL (0.2 - 1.0)
[2016-09-28 14:56] LABS: URINE BACTERIA OCCASIONAL /hpf (NONE SEEN); URINE EPITHELIAL CELLS OCCASIONAL /lpf (FEW); URINE RBC 0-2 /hpf (0-5); URINE WBC 0-2 /hpf (0-5)
[2016-09-28] MEDS ORDERED: PHENYTOIN IV SCH (15:00)
[2016-09-28] MEDS ORDERED: SODIUM CHLORIDE 0.9% IV SCH (15:00)
[2016-09-28] MEDS: Levofloxacin 500mg/100mL 500 MG/100 ML BAG IV SCH (17:31)
[2016-09-28] MEDS ORDERED: Levetiracetam 1000mg/100mL 1,000 MG/100 ML BAG IV ONE (21:00)
[2016-09-28] MEDS: Levetiracetam 1000mg/100mL 1,000 MG/100 ML BAG IV SCH (21:05)
[2016-09-29] MEDS: Valproate Sodium 1,000 MG in Sodium Chloride 0.9% 100 ML IV SCH ×2 (02:00→14:01)
[2016-09-29] MEDS: D5-0.9%NS 1,000 ML IV SCH (02:06)
[2016-09-29 05:21] LABS: % BASOPHILS 0.9 % (0.0-2.0); % EOSINOPHILS 0.3 % (0.0-5.0); % LYMPHOCYTES 6.6 % (20.0-50.0); % MONOCYTES 2.5 % (2.0-10.0); % NEUTROPHILS 89.7 % (40.0-80.0); HEMATOCRIT 40.5 % (35.0-45.0); HEMOGLOBIN 13.5 gm/dL (11.7-16.1); MEAN CORPUSCULAR HEMOGLOBIN 33.2 pg (27.0-31.0); MEAN CORPUSCULAR HGB CONC 33.2 pg (28.0-36.0); MEAN PLATELET VOLUME 7.3 fl; NEUTROPHILE ABSOLUTE 12.8 Th/cmm (1.8-8.0); RED BLOOD COUNT 4.05 Mil/cmm (3.80-5.20); RED CELL DISTRIBUTION WIDTH 12.4 % (11.5-20.0)
[2016-09-29 06:14] LABS: PLATELET COUNT 328 Th/cmm (150-400); WHITE BLOOD COUNT 14.2 Th/cmm (4.8-10.8)
[2016-09-29] MEDS: Albuterol/Ipratropium Neb 3 ML AERS HHN SCH ×4 (07:18→19:21)
[2016-09-29] MEDS: Lactobacillus Rhamnosus 10 Billion CFU Capsule PO SCH (08:51)
[2016-09-29] MEDS: Petrolatum (White) Oint 0.6 Oz Tube TP SCH ×2 (09:01→14:04)
[2016-09-29] MEDS: Levetiracetam 1000mg/100mL 1,000 MG/100 ML BAG IV SCH (10:48)
[2016-09-29] MEDS ORDERED: Lacosamide 10 mg/mL 10mL UDC NG SCH (12:00)
--- NOTE | 2016-09-29 12:04 | Diagnostic Imaging Report ---
Portable chest x-ray History: Shortness of breath Allowing for portable technique the heart size is normal. No focal pulmonary parenchymal processes. No hilar or mediastinal abnormalities. Impression: No acute abnormalities.
[2016-09-29] MEDS ORDERED: Lacosamide 10 mg/mL 10mL UDC PO SCH (17:00)
[2016-09-29] MEDS: Levofloxacin 500mg/100mL 500 MG/100 ML BAG IV SCH (17:39)
--- NOTE | 2016-10-04 20:41 | Discharge Summary ---
ADMITTING DIAGNOSES: 1. Status post multiple falls. Etiology uncertain--differential included mechanical versus syncopal/presyncopal vs secondary to seizures. 2. Leukocytosis-etiol unknown. 3. Right upper lobe pneumonia per prelim reading. 4. COPD with exacerbation. SECONDARY DIAGNOSES: Include history of COPD, longstanding history of nicotine dependence, history of atherosclerotic vascular disease, history of seizure disorder, history of brain tumor/mass status post multiple craniotomies. CONSULTANTS: Neurology, Dr. Soares and pulmonary Dr. Herbert. MAJOR PROCEDURES: Head CT done on 09/19/2016 shows postsurgical changes including evidence of right frontal craniotomy with evidence of encephalomalacia throughout the right frontal lobe and right basal ganglia. There was echocardiogram done on 09/20/2016 showing hypertrophy of the left ventricle with an EF of 55%, moderate pulmonary hypertension, moderate tricuspid regurgitation and mild aortic regurgitation. Carotid ultrasound on 09/20/2016 showing mild bilateral athetotic changes that did not appear to be hemodynamically stable. There is a cervical spine CT showing multilevel facet DJD seen greatest at C2, C3 on the left side and mild left neural foraminal narrowing at this level. There was unfused posterior arch at C1. There is patchy osteopenia with mottled appearance of the bones. There are also criteria for atherosclerotic disease. There was a repeat head CT on 09/26/2016 showing no evidence of acute intracranial hemorrhage. There was a redemonstration of postsurgical changes of the right frontal and temporal lobe regions with areas of encephalomalacia again noted throughout the right frontal lobe. There are old right basal ganglia infarcts. BRIEF HOSPITAL COURSE: 70-year-old female resident of [facility] and was transferred to the ER after sustaining multiple mechanical falls which appeared to be nonsyncopal. She does have a longstanding history of seizure disorder, but there were no seizures witnessed/reported at that time. The patient apparently fell 7 times over the last 2 to 3 days and therefore was sent to the ER given that she also look lethargic and somewhat confused from her baseline. On admission, she denied any chest pain, but did c/o worsening shortness of breath from her baseline, which is consisted of chronic congestive cough with secretions. She did appear to be short of breath on admission (O2 sats: 92% RA) and was placed on IV antibiotics and IV steroids and supplemental oxygen. Her initial Dilantin was noted to be 24.8 and her white count initially was noted to be 18.6 with a left shift, neutrophils count was 95%. Sodium was 133. She was admitted to tele and her Dilantin was withheld for a couple of days and on repeating the level it had gone down to 8.3. Therefore, she was restarted with Dilantin. Dr. Soares was consulted and CT of the cervical spine was done given his recommendations. An MRI could not be done given that she had clips of her previous craniotomies. The patient was noted to remain weak throughout her hospital stay with O2 sats remaining low on room air. Therefore, she was kept on 2 liters nasal cannula. She was placed on emperic IV antibiotics for her COPD exacerbation/possible bronchitis vs early pneumonia and was eventually also seen by pulmonary medicine. She underwent further neuro and cardiac eval (carotid and a 2D echo). On 09/25/2016, she developed more frequent seizure activity. Therefore, she was transferred to the ICU for further closer management and care. The patient's Dilantin was noted to be within therapeutic range after being previously loaded via IVP, however, extra doses of IV dilantin were given and her Keppra as well as Ativan were all given via IV as scheduled. She was also eventually started on phenobarbital as well. Patient was kept on aspiration precautions since admission. The patient had an advance directive (DNR level 3) including no intubation; therefore, she was kept on oxygen and other supportive care including pulmonary toilet and suction p.r.n. Her seizures did persist despite multiple doses of Ativan IV on top of her anticonvulsants. She was noted to be bradycardic and with worsening respiratory insufficiency. She went into respiratory failure and was noted to be asystole on or around 09/29/2016, she was pronounced shortly after. JOB# [id number] [facility]
== END 2016-09-29 21:25 | disposition expired | DRG 871 ==
LOC: ER 13:32 → TELE 16:45 → MSI 09-21 19:52 → TELE 09-26 11:27 → ICU 09-27 00:29 → TELE 09-27 23:59 → ICU 09-28 09:30
PROVIDERS: ADMIT Internal Medicine; ATTEND Internal Medicine
DX: A41.9 Sepsis, unspecified organism (principal); J18.9 Pneumonia, unspecified organism; G93.89 Other specified disorders of brain; F03.90 Unspecified dementia, unspecified severity, without behavioral disturbance, psychotic disturbance, mood disturbance, and anxiety; J44.1 Chronic obstructive pulmonary disease with (acute) exacerbation; J44.0 Chronic obstructive pulmonary disease with (acute) lower respiratory infection; E87.1 Hypo-osmolality and hyponatremia; G40.909 Epilepsy, unspecified, not intractable, without status epilepticus; M47.812 Spondylosis without myelopathy or radiculopathy, cervical region; F17.210 Nicotine dependence, cigarettes, uncomplicated; I25.10 Atherosclerotic heart disease of native coronary artery without angina pectoris; G62.9 Polyneuropathy, unspecified; R27.0 Ataxia, unspecified; J20.9 Acute bronchitis, unspecified; T42.0X5A Adverse effect of hydantoin derivatives, initial encounter; W19.XXXA Unspecified fall, initial encounter; Y93.89 Activity, other specified; Y92.89 Other specified places as the place of occurrence of the external cause; Y99.8 Other external cause status; Z98.890 Other specified postprocedural states; Z66 Do not resuscitate
CPT/HCPCS: 36415-UA; 70450-TC; 71010-TC; 72125-TC; 80048-TC; 80053-TC; 80061-TC; 80185-TC; 80299-90; 81001-TC; 82085-90; 82550-TC; 82607-90; 82746-90; 82803-TC; 83036-90; 83605; 83735-TC; 83880-TC; 84443-TC; 84484-TC; 85007-TC; 85025-TC; 85027-TC; 86141-TC; 87070; 87086-90; 87804-TC; 93005; 93307-TC; 93880-TC; 94640; 94760; 97530; C9113; J1165; J1644; J1953; J1956; J2060; J2930; J7030; J7040; J7042; X3401; X3904; Z7610